=== PATIENT | female | born 1940 | race Caucasian/White ===

== ENCOUNTER → 2017-02-03 | Outpatient (CLI) | payer MEDICARE ==
[~2017-02-03] MED LIST: COREG12.5 MG PO; COREG25 MG PO; FEOSOL325 MG PO; HYGROTON25 MG PO; LEVOTHROID (SY50 MCG PO; PRINIVIL (ZESTR20 MG PO; TYLENOL EXTRA500 MG PO; ULTRAM50 MG PO; VITAMIN D1000 UNIT PO
== END | disposition disaster alternative care site (69) ==
LOC: GRAD 11:14
DX: S39.92XA Unspecified injury of lower back, initial encounter (principal); M54.9 Dorsalgia, unspecified; S32.019A Unspecified fracture of first lumbar vertebra, initial encounter for closed fracture; M48.36 Traumatic spondylopathy, lumbar region; M48.06 Spinal stenosis, lumbar region; Z98.890 Other specified postprocedural states; W19.XXXA Unspecified fall, initial encounter

== ENCOUNTER 2017-02-11 16:06 | Emergency (ER) | payer MEDICARE ==
--- NOTE | ~2017-02-11 | ER ---
PATIENT'S NAME: BJ AYALA [facility] AGE: 76 Y [address] ROOM: [place], [place] [address] LOCATION: ED ADMIT DATE: 02/11/2017 ER/Outpatient Report DISCHARGE DATE: 02/11/2017 FAMILY PHYSICIAN: Physician, Unknown ATTENDING PHYSICIAN: Yvrose Fry Time of Arrival: 1606. Time Seen: 1606. IDENTIFICATION: 76-year-old female. CHIEF COMPLAINT: Elevated blood pressure. HISTORY OF PRESENT ILLNESS: The patient is a 76-year-old female, who was here for a kyphoplasty with Dr. Chava Ha for an L1 compression fracture. Before she was even taken back for the procedure, she had elevated blood pressures per Anesthesia of 250/115. The patient was asymptomatic. They did contact her primary care physician, Dr. Chavez, was unavailable, so Dr. Galaviz was contacted and recommended transferring the patient to the emergency room. On arrival here, the patient denies any headache. No chest pain. No numbness or tingling. No visual changes. No other problems or concerns. She does have a history of hypertension. She took her usual dose, morning dose of Coreg this morning and took her lisinopril last evening. She said she had to be hospitalized one time for an elevated blood pressure. She has no history of cardiac problems. She does have a questionable history of MS, but has not been on any steroids. PAST MEDICAL HISTORY: ALLERGIES: TO ERYTHROMYCIN, SULFA, AND PENICILLIN. CURRENT MEDICATIONS: 1. Acetaminophen 500 mg q.6 hours p.r.n. pain. 2. Levothyroxine 50 mcg daily. 3. Lisinopril 20 mg at bedtime. 4. Carvedilol 25 mg one-half tablet p.o. b.i.d. 5. Cholecalciferol 1000 units at bedtime. MEDICAL PROBLEMS: L1 compression fracture, history of anemia, basal cell carcinoma, hyperlipidemia, hypertension, hypothyroidism, left-sided weakness, multiple sclerosis, nocturnal leg cramps, osteoporosis, polio, vitamin D deficiency. PATIENT'S NAME: BJ AYALA [facility] AGE: 76 Y [address] ROOM: [place], [place] [address] LOCATION: ED ADMIT DATE: 02/11/2017 ER/Outpatient Report DISCHARGE DATE: 02/11/2017 FAMILY PHYSICIAN: Physician, Unknown ATTENDING PHYSICIAN: Yvrose Fry PRIOR SURGERIES: section x2, hysterectomy, lesion removal for squamous cell carcinoma of the skin. SOCIAL HISTORY: The patient is retired and lives here in [place]. Tobacco use, she smokes for 1-2 years 50 years ago. Alcohol use, denies. Drug use, denies. FAMILY HISTORY: Father with CVA and hypertension, brother with prostate cancer. REVIEW OF SYSTEMS: All systems reviewed and negative other than what is noted in the HPI. PHYSICAL EXAMINATION: VITAL SIGNS: Height 5 feet 5 inches, weight 55.2 kg. Blood pressure 255/118, pulse 88, respirations 16, temperature 97.2, and saturations 95% on room air. GENERAL: This is a 76-year-old female, in no acute distress. HEENT: Head: Normocephalic. Eyes: Pupils equal and reactive to light and accommodation. Extraocular movements intact. Nose: Mucosa pink. No lesions. Mouth: No lesions. Pharynx benign. NECK: Supple. No lymphadenopathy. No thyromegaly. No JVD. No carotid bruits. LUNGS: Clear to auscultation. HEART: Regular rate and rhythm. ABDOMEN: Soft, nondistended, nontender. SKIN: [place], warm, and dry. No lesions or rashes noted. NEUROLOGIC: The patient is alert and oriented x4. Cranial nerves 2 through 12 grossly intact. Motor strength 5/5 throughout. Sensation is intact to light touch. No lower extremity edema. No calf tenderness. The patient arrived with an IV already initiated by anesthesia. LABORATORY DATA: TSH 1.470. Sodium 138, potassium 4, chloride 103, CO2 of 25, BUN 15, creatinine 0.8, blood sugar 83. Liver enzymes normal. Magnesium 2.3, CPK 71, CK-MB 0.7. Troponin I less than 0.040. Hemoglobin 11.8, hematocrit 37, platelets 237, white count 6.9, INR 0.97. EKG; sinus rhythm at 74 beats per minute. No acute ST elevation or depression. Voltage criteria for LVH. No prior EKG available for comparison at this time. The patient was given labetalol 10 mg IV over 2 minutes and her blood pressure improved to 200/90. The patient was given lisinopril 20 mg orally and an additional 5 mg of labetalol, her blood pressure improved to 170s over 80s. She continued to remain asymptomatic. PATIENT'S NAME: BJ AYALA [facility] AGE: 76 Y [address] ROOM: [place], [place] [address] LOCATION: [facility] ADMIT DATE: 02/11/2017 ER/Outpatient Report DISCHARGE DATE: 02/11/2017 FAMILY PHYSICIAN: Physician, Unknown ATTENDING PHYSICIAN: Yvrsoe Fry IMPRESSION: 1. Hypertensive urgency. 2. L1 compression fracture. PLAN: Continue current home medications. Reschedule her kyphoplasty per Dr. Jaime and follow up with Dr. Chavez in 1 day. The patient and her son understand and agree, and all questions have been answered. YVROSE FRY MD CAR/modl /[id number] d: 02/11/17 2328 t: 02/12/17 0712, OUTPATIENT REPORT
--- NOTE | ~2017-02-11 | ER ---
PATIENT'S NAME: BJ AYALA [facility] AGE: 76 Y [address] ROOM: [place] [address] LOCATION: [facility] ADMIT DATE: 02/11/2017 ER/Outpatient Report DISCHARGE DATE: 02/11/2017 FAMILY PHYSICIAN: Physician, Unknown ATTENDING PHYSICIAN: Yvrose Scruggs ADDENDUM: 30 minutes of critical care was provided with this patient. MD MAHESH MULTANI/lovel /[id number] d: 02/11/17 2314 t: 02/12/17 1342, OUTPATIENT REPORT
[2017-02-11 16:33] LABS: BASOPHIL % 0.6 %; EOSINOPHIL # 0.1 K/uL (0.0-0.5); EOSINOPHIL % 1.7 %; HEMOGLOBIN 11.8 g/dL (10.0-15.0); IMMATURE GRANULOCYTE % 0.3 %; LYMPHOCYTE # 1.2 K/uL (0.8-4.0); LYMPHOCYTE % 17.9 %; MCH 29.4 pg (27.0-34.0); MCHC 31.9 gm/dL (32.0-36.5); MCV 92.3 fl (83.0-98.0); MONOCYTE # 0.5 K/uL (0.0-1.0); MONOCYTE % 7.6 %; MPV 9.6 fl (9.4-12.4); NEUTROPHIL % 71.9 %; NRBC % 0 /100WBC (0-0.00); PLATELET COUNT 237 K/uL (150-450); RBC 4.01 M/uL (3.50-5.50); RDW-CV 13.6 % (11.9-14.6); WBC 6.9 K/uL (4.0-11.0)
[2017-02-11 16:39] LABS: INR - (THERAPEUTIC) 0.97 (0.92-1.07); PROTIME 10.2 SECONDS (9.8-11.4); PTT 26 SECONDS (25-32)
[2017-02-11 16:56] LABS: ALBUMIN 3.9 gm/dL (3.5-5.0); ALK PHOS 78 IU/L (33-138); ALT 29 IU/L (12-78); AST 22 IU/L (10-40); BLOOD UREA NITROGEN 15 mg/dL (6-24); CALCIUM 8.9 mg/dL (8.5-10.5); CHLORIDE 103 mMol/L (96-110); CO2 25 mMol/L (22-32); CPK 71 IU/L (21-215); CREATININE 0.8 mg/dL (0.5-1.1); ESTIMATED GFR (MDRD EQUATION) > 60; MAGNESIUM 2.3 mg/dL (1.8-2.6); SODIUM 138 mMol/L (135-145); TOTAL BILIRUBIN 0.4 mg/dL (0.0-1.5); TOTAL PROTEIN 7.5 g/dL (6.0-8.4)
== END 2017-02-11 18:37 | disposition disaster alternative care site (69) ==
LOC: GMED 16:06
PROVIDERS: Family Medicine
DX: I16.0 Hypertensive urgency (principal); S32.019D Unspecified fracture of first lumbar vertebra, subsequent encounter for fracture with routine healing; X58.XXXD Exposure to other specified factors, subsequent encounter; I10 Essential (primary) hypertension; E78.5 Hyperlipidemia, unspecified; E03.9 Hypothyroidism, unspecified; G35 Multiple sclerosis; E55.9 Vitamin D deficiency, unspecified; M81.0 Age-related osteoporosis without current pathological fracture; F17.210 Nicotine dependence, cigarettes, uncomplicated; Z90.710 Acquired absence of both cervix and uterus

== ENCOUNTER → 2017-02-11 | Outpatient (CLI) | payer MEDICARE ==
[2017-02-11 14:55] LABS: HEMATOCRIT 35.1 % (33.0-46.0); HEMOGLOBIN 11.5 g/dL (10.0-15.0); MCH 30.2 pg (27.0-34.0); MCHC 32.8 gm/dL (32.0-36.5); MCV 92.1 fl (83.0-98.0); MPV 9.7 fl (9.4-12.4); RDW-CV 13.9 % (11.9-14.6); WBC 6.2 K/uL (4.0-11.0)
[2017-02-11 14:56] LABS: RBC 3.81 M/uL (3.50-5.50)
[2017-02-11 15:02] LABS: INR - (THERAPEUTIC) 0.96 (0.92-1.07); PROTIME 10.1 SECONDS (9.8-11.4)
[2017-02-11 15:08] LABS: ALBUMIN 4.1 gm/dL (3.5-5.0); ANION GAP 12.2 (10.0-19.0); BLOOD UREA NITROGEN 16 mg/dL (6-24); CALCIUM 9.2 mg/dL (8.5-10.5); CHLORIDE 105 mMol/L (96-110); CO2 25 mMol/L (22-32); CREATININE 0.9 mg/dL (0.5-1.1); ESTIMATED GFR (MDRD EQUATION) > 60; POTASSIUM 4.2 mMol/L (3.7-5.1); SODIUM 138 mMol/L (135-145)
== END | disposition disaster alternative care site (69) ==
LOC: GOPD 02-08
PROVIDERS: Neurological Surgery
DX: S32.010A Wedge compression fracture of first lumbar vertebra, initial encounter for closed fracture (principal); X58.XXXA Exposure to other specified factors, initial encounter
CPT/HCPCS: J0690; J2001; J7030

== ENCOUNTER → 2017-02-25 | Outpatient (CLI) | payer MEDICARE | END | disposition disaster alternative care site (69) | LOC: GOPD 02-23 | PROC: 0QS03ZZ Reposition Lumbar Vertebra, Percutaneous Approach (ICD-10-PCS; principal; 2017-02-25) | PROC: 0QU03JZ Supplement Lumbar Vertebra with Synthetic Substitute, Percutaneous Approach (ICD-10-PCS; 2017-02-25) | DX: S32.010A Wedge compression fracture of first lumbar vertebra, initial encounter for closed fracture (principal); X58.XXXA Exposure to other specified factors, initial encounter | CPT/HCPCS: C1713; J0690; J2001; J2250; J3010; J7030 ==

== ENCOUNTER 2017-03-11 10:58 | Emergency (ER) | payer MEDICARE ==
--- NOTE | ~2017-03-11 | ER ---
PATIENT'S NAME: BJ GALDAMEZ [facility] AGE: 76 Y [address] ROOM: [place] [address] LOCATION: [facility] ADMIT DATE: 03/11/2017 ER/Outpatient Report DISCHARGE DATE: 03/11/2017 FAMILY PHYSICIAN: Warren Chavez MD ATTENDING PHYSICIAN: Yvrose Fry Time of Arrival: 1058 hours. Time Seen: 1123 hours. IDENTIFICATION: A 76-year-old female. CHIEF COMPLAINT: Headache. HISTORY OF PRESENT ILLNESS: The patient is a 76-year-old female. The patient has a history of hypertension, usually well controlled, followed by Dr. Chavez. Last couple of days, her blood pressure has been creeping up to the 200/110 range. Since yesterday, she has had a headache and she was just feeling kind of lethargic and her eyes felt heavy, frontal headache. No visual changes, no chest pain, no numbness or tingling, no neurologic changes. She said usually her blood pressure is 135 to 147 over 70 to 84. She went to Dr. Chavez's office and had a blood pressure elevated there of 198/110 and was sent to the emergency room. A similar situation occurred when the patient was getting ready for kyphoplasty on February 11, preoperatively she had an elevated blood pressure and was sent to the emergency room for hypertensive urgency, received IV labetalol, her usual oral doses of antihypertensive and was discharged home from the emergency room and she has had no adjustments in her medication as she said since then her blood pressure has been fine. Interim, the patient apparently did have her kyphoplasty done and she has a followup appointment with Dr. Jaime tomorrow. Currently, her pain is 8/10 on the pain scale. ALLERGIES: SULFA AND ERYTHROMYCIN. CURRENT MEDICATIONS: 1. Levothyroxine 50 mcg daily. 2. Lisinopril 20 mg at bedtime. 3. Carvedilol 25 mg 1/2 tab b.i.d. 4. Vitamin D 1000 units at h.s. MEDICAL PROBLEMS: L1 compression fracture, status post kyphoplasty; history of anemia; hypertension; basal cell carcinoma; hyperlipidemia; hypothyroidism; left-sided PATIENT'S NAME: BJ GALDAMEZ [facility] AGE: 76 Y [address] ROOM: [place] [id number] LOCATION: [facility] ADMIT DATE: 03/11/2017 ER/Outpatient Report DISCHARGE DATE: 03/11/2017 FAMILY PHYSICIAN: Warren Chavez MD ATTENDING PHYSICIAN: Yvrose Fry weakness; multiple sclerosis; nocturnal leg cramps; osteoporosis; polio; and vitamin D deficiency. PRIOR SURGERIES: section x2, hysterectomy, and lesion removal for squamous cell carcinoma of the skin. SOCIAL HISTORY: The patient is retired. Lives here in [place]. She does live alone. Her son Fran Galdamez lives in [place]. Tobacco use, none currently, very remote history. Alcohol use, denies. Drug use, denies. FAMILY HISTORY: Father with CVA and hypertension, brother with prostate cancer. REVIEW OF SYSTEMS: All systems reviewed and negative other than what is noted in the HPI. PHYSICAL EXAMINATION: VITAL SIGNS: Weight 53.8 kg. Blood pressure 244/113, pulse 86, respirations 20, and saturations 99% on room air. GENERAL: A 76-year-old female, in mild to moderate distress. HEENT: Head: Normocephalic, atraumatic. Ears: TMs translucent, both ears. Eyes: Pupils equal and reactive to light and accommodation. Extraocular movements intact. Nose: Mucosa pink. No lesions. Mouth: No lesions. Pharynx benign. NECK: Supple. No lymphadenopathy. No thyromegaly. LUNGS: Clear to auscultation. Breath sounds are equal. HEART: Regular rate and rhythm. No murmur, rub, or gallop. ABDOMEN: Bowel sounds present. Soft, nondistended, and nontender. SKIN: [place], warm, and dry. No lesions or rashes noted. NEURO: The patient is alert and oriented x4. Cranial nerves 2 through 12 grossly intact. Motor strength 5/5 throughout. Sensation is intact to light touch. No lower extremity edema. No calf tenderness. DIAGNOSTIC DATA: One-view chest x-ray, no acute process, pending Radiology over-read. Head CT without contrast, normal per Radiology. EMERGENCY DEPARTMENT COURSE: An IV was initiated. The patient was given fentanyl 50 mcg for pain, Zofran 4 mg for nausea, labetalol 10 mg IV for hypertension, lisinopril 20 mg orally, Coreg 12.5 mg orally. EKG: Normal sinus rhythm at 74 beats per minute. No acute ST elevation or depression. Q-wave noted in lead III. Chemistry panel is unremarkable. Magnesium normal. CPK, CK-MB, and troponin I are normal. PATIENT'S NAME: BJ GALDAMEZ [facility] AGE: 76 Y [address] ROOM: [place] [address] LOCATION: [facility] ADMIT DATE: 03/11/2017 ER/Outpatient Report DISCHARGE DATE: 03/11/2017 FAMILY PHYSICIAN: Warren Chavez MD ATTENDING PHYSICIAN: Yvrose Fry CBC is unremarkable. Sedimentation rate 16. Blood pressure came down to 161/73, did go up slightly after that, as we were discussing hospitalization, the patient refuses hospitalization; recheck then was 144/84. IMPRESSION: 1. Hypertensive urgency, blood pressure improved. 2. Headache, almost completely resolved. PLAN: Discussed with Dr. Chavez as the patient does not want to stay. She will take lisinopril 20 mg here and then 20 mg at h.s. and then 40 mg daily starting tomorrow. She will take the Coreg as directed, her dose for this morning was given here in the emergency room and she will follow up with Dr. Chavez in 1 day, follow up sooner if any problems or concerns. The patient understands and agrees, and all questions have been answered. YVROSE FRY MD CAR/modl /[id number] d: 03/11/17 2157 t: 03/12/17 0629, OUTPATIENT REPORT
[2017-03-11 11:52] LABS: BASOPHIL % 0.6 %; EOSINOPHIL # 0.1 K/uL (0.0-0.5); EOSINOPHIL % 1.1 %; HEMATOCRIT 35.6 % (33.0-46.0); HEMOGLOBIN 11.5 g/dL (10.0-15.0); IMMATURE GRANULOCYTE % 0.3 %; LYMPHOCYTE % 15.6 %; MCH 30.3 pg (27.0-34.0); MCHC 32.3 gm/dL (32.0-36.5); MCV 93.7 fl (83.0-98.0); MONOCYTE # 0.4 K/uL (0.0-1.0); MONOCYTE % 6.1 %; MPV 9.9 fl (9.4-12.4); NEUTROPHIL % 76.3 %; NRBC % 0 /100WBC (0-0.00); PLATELET COUNT 242 K/uL (150-450); RDW-CV 13.7 % (11.9-14.6); WBC 6.6 K/uL (4.0-11.0)
[2017-03-11 12:12] LABS: ALBUMIN 3.6 gm/dL (3.5-5.0); ALK PHOS 68 IU/L (33-138); ALT 20 IU/L (12-78); AST 17 IU/L (10-40); BLOOD UREA NITROGEN 19 mg/dL (6-24); CHLORIDE 108 mMol/L (96-110); CO2 28 mMol/L (22-32); CPK 61 IU/L (21-215); CREATININE 0.8 mg/dL (0.5-1.1); ESTIMATED GFR (MDRD EQUATION) > 60; INR - (THERAPEUTIC) 0.92 (0.92-1.07); MAGNESIUM 2.2 mg/dL (1.8-2.6); PROTIME 9.7 SECONDS (9.8-11.4); PTT 26 SECONDS (25-32); SODIUM 142 mMol/L (135-145); TOTAL PROTEIN 7.2 g/dL (6.0-8.4)
[2017-03-11 12:13] LABS: TOTAL BILIRUBIN 0.3 mg/dL (0.0-1.5)
== END 2017-03-11 15:05 | disposition disaster alternative care site (69) ==
LOC: GMED 10:58 → GICU 13:37 → GMED 13:37
PROVIDERS: Family Medicine
DX: I16.0 Hypertensive urgency (principal); R51 Headache; I10 Essential (primary) hypertension; E03.9 Hypothyroidism, unspecified; E78.5 Hyperlipidemia, unspecified; E55.9 Vitamin D deficiency, unspecified; M81.0 Age-related osteoporosis without current pathological fracture; Z98.890 Other specified postprocedural states; Z87.891 Personal history of nicotine dependence; Z90.710 Acquired absence of both cervix and uterus; Z79.899 Other long term (current) drug therapy; Z88.2 Allergy status to sulfonamides; Z88.1 Allergy status to other antibiotic agents
CPT/HCPCS: J2405; J3010